=== PATIENT | male | born 1970 | race Caucasian/White ===

== ENCOUNTER 2016-09-15 12:00 | Emergency (ER) | payer MEDICAID ==
[~2016-09-15] VITALS: Wt 75.0 kg
[~2016-09-15 12:00] MED LIST: ALBU8.5H3 IH; ASPI-676 PO; ATOR40TA68 PO; CLOP75TA27 PO; INSULIN; METO-53 PO; OMEG-135 PO; [UNRECOGNIZED DRUG - OTHER]; [UNRECOGNIZED DRUG - REMARK]
[2016-09-15] MEDS ORDERED: IBUPROFEN 600 MG TAB PO ONE (13:00)
--- NOTE | 2016-09-15 13:10 | RADRPT ---
PROCEDURE: XR Sacrum and Coccyx. CLINICAL INDICATION: Low back pain TECHNIQUE: AP and lateral views of the sacrum and coccyx were performed. COMPARISON: No prior studies are available for comparison. FINDINGS: There is normal sacral and coccygeal mineralization and alignment. No fracture or subluxation is see n. The sacroiliac joints appear normal. The soft tissues are unremarkable. IMPRESSION: Unremarkable x-ray examination of the sacrum and coccyx. RPTAT: HGDB .Raymundo Guerrero MD, Date Time Electronically viewed and signed by .Raymundo Guerrero MD, on 09/15/2016 13:10 .B/
--- NOTE | 2016-09-15 13:19 | RADRPT ---
PROCEDURE: Right shoulder 3 views CLINICAL INDICATION: Right shoulder pain and trauma TECHNIQUE: AP internal and external rotation and transscapular Y views of the right shoulder were obtained COMPARISON: None available FINDINGS: Osseous structures are intact. No destructive bony lesions are observed. Interosseous spaces appea r normal. Soft tissues are unremarkable. IMPRESSION: No visualized traumatic injury. If there is high clinical suspicion for traumatic injury, further evaluation with CT should be consi dered. RPTAT: AA .Jeffrey Adams MD, Date Time Electronically viewed and signed by .Jeffrey Adams MD, on 09/15/2016 13:19 .P/
[2016-09-15] MEDS ORDERED: IBUP-1542 PO (13:38)
[2016-09-15] MEDS ORDERED: TRAM50TA2 PO (13:38)
--- NOTE | 2016-09-15 13:41 | ERD ---
ER Documentation Chief Complaint Date/Time DATE: 09/15/16 TIME: 13:39 Chief Complaint fall 10 days prior with pain to right buttocks. no deficit noted. HPI This 45-year-old male fell approximately 10 days ago complains of residual right shoulder pain and pain in his coccyx area. Denies any blood, restricted range of motion, weakness. Denies any head injury or neck pain. ROS All systems reviewed and are negative except as per history of present illness. Medications Home Meds Active Scripts Tramadol HCl (Tramadol HCl) 50 Mg Tablet, 50 MG PO Q4 Y for PAIN, #20 TAB Prov:CRYSTAL CURIEL MD 09/15/16 Ibuprofen* (Motrin*) 600 Mg Tab, 600 MG PO Q6, #20 TAB Prov:CRYSTAL CURIEL MD 09/15/16 Reported Medications [cloudy insulin] No Conflict Check 04/11/13 ["clear insulin"] No Conflict Check 04/11/13 [Insulin] No Conflict Check 04/11/13 Albuterol Sulfate* (Proair HFA*) 8.5 Gm Hfa.aer.ad, 8.5 GM IH BID 04/11/13 Metoprolol (Lopressor) 50 Mg Tablet, 75 MG PO DAILY 04/11/13 Fish Oil* (Fish Oil*) 1,000 Mg Cap, 1000 MG PO DAILY 04/11/13 Clopidogrel Bisulfate (Clopidogrel) 75 Mg Tablet, 75 MG PO DAILY 04/11/13 Atorvastatin* (Atorvastatin*) 40 Mg Tablet, 40 MG PO DAILY 04/11/13 Aspirin (Darien Child) 81 Mg Chew, 81 MG PO DAILY 04/11/13 Allergies Allergies: Coded Allergies: No Known Allergy (Unverified , 04/11/13) PMhx/Soc Medical and Surgical Hx: pt denies Medical Hx, pt denies Surgical Hx History of Surgery: Yes Anesthesia Reaction: No Hx Neurological Disorder: No Hx Respiratory Disorders: Yes Hx Cardiac Disorders: No Hx Psychiatric Problems: No Hx Miscellaneous Medical Probl: Yes (stopped taking all medications ~1 year [employer] ) Hx Alcohol Use: Yes Hx Substance Use: No Hx Tobacco Use: Yes Smoking Status: Current every day smoker Physical Exam Vitals Vital Signs Date Time Temp Pulse Resp B/P Pulse Ox O2 Delivery O2 Flow Rate FiO2 09/15/16 12:03 98.5 98 20 179/90 99 Physical Exam Const: [] Alert, [id number] per Head: Atraumatic Eyes: Normal Conjunctiva ENT: Normal External Ears, Nose and Mouth. Neck: Full range of motion..~ No meningismus. Resp: Clear to auscultation bilaterally Cardio: Regular rate and rhythm, no murmurs Abd: Soft, non tender, non distended. Normal bowel sounds Skin: No petechiae or rashes Back: No midline or flank tenderness. There is tenderness in the coccygeal area and right buttock without deformities, erythema, skin changes. Patient is amatory without pain or discomfort. Ext: No cyanosis, or edema. Tenderness which is mild the right shoulder capsule without deformities, restricted range of motion, weakness, warmth, erythema. Neur: Awake and alert Psych: Normal Mood and Affect Results 24 hrs Current Medications Medications (Trade) Dose Ordered Sig/Angelina Route PRN Reason Start Time Stop Time Status Last Admin Dose Admin Ibuprofen (Motrin) 600 mg ONCE ONCE PO 09/15/16 13:00 09/15/16 13:01 DC 09/15/16 12:48 Procedures/MDM AP lateral 2 view sacrum and coccyx x-ray-no fractures no dislocations. Impression-normal appearing sacrum and coccyx X-ray right shoulder 3V Interpreted by me: Bones: [No fracture] Joints: [No dislocation] Foreign body: [None]. Impression have a normal right shoulder x-ray Patient presents with right shoulder pain and buttock pain after a fall 2010 days ago. There is no evidence of fracture, dislocation, neurologic deficit, bacterial infection. Treated with tramadol and ibuprofen and further observation at home. Return for fevers, blood, new worsening symptoms with primary care doctor this week. The patient was stable with no new complaints during the ER course. Clinically, there is no current evidence to suggest meningitis, sepsis, acute abdomen, pneumonia, acute coronary syndrome, pulmonary embolism, or any other emergent condition appearing to require further evaluation or hospitalization. The patient should certainly return for any new or worsening symptoms per the aftercare instructions. They should otherwise follow-up with her primary care doctor for reevaluation this week. Departure Diagnosis: Primary Impression: Shoulder sprain Encounter type: initial encounter Shoulder sprain type: unspecified sprain Laterality: right Qualified Code: S43.401A - Sprain of right shoulder, unspecified shoulder sprain type, initial encounter Additional Impressions: Coccyx sprain Encounter type: initial encounter Qualified Code: S33.8XXA - Coccyx sprain, initial encounter Fall with no significant injury Encounter type: initial encounter Qualified Code: W19.XXXA - Fall with no significant injury, initial encounter Condition: Stable Patient Instructions: Contusion, Coccyx/Sacrum, Shoulder Sprain Referrals: ROLANDO ROQUE MD Additional Instructions: Examines normal hoy. Cheque otro vez con [place] doctor primario en el proximo santana or regresa para mas o nueva simptomas. Va al [place] doctor/ specialista para mas evaluacon en el proximo semana. posiblemente necesita autorizado de [place] doctor primario para specialista. Regresa para fiebre, o mas o nueva simptomas. CRYSTAL CURIEL MD September 15, 2016 13:41
== END 2016-09-15 14:23 | disposition home or self-care (01) ==
LOC: FTE 12:00
DX: S43.401A Unspecified sprain of right shoulder joint, initial encounter (principal); S33.8XXA Sprain of other parts of lumbar spine and pelvis, initial encounter; F17.210 Nicotine dependence, cigarettes, uncomplicated; W19.XXXA Unspecified fall, initial encounter; Y92.9 Unspecified place or not applicable; Z79.82 Long term (current) use of aspirin
CPT/HCPCS: 72220; 73030; Z7610

== ENCOUNTER 2018-09-18 10:00 | Emergency (ER) | payer MEDICAID ==
[~2018-09-18] VITALS: Wt 89.0 kg
[~2018-09-18 10:00] MED LIST changes: -ALBU8.5H3 IH; +ALBU8.5H8 IH; +IBUP-1542 PO; +TRAM50TA2 PO
[2018-09-18 10:02] VITALS: BP 189/114; PULSE 89; RESP 18; Wt 89.0 kg
[2018-09-18] MEDS ORDERED: NAPR-985 PO (10:56)
[2018-09-18] MEDS ORDERED: PSEU-79 PO (10:56)
[2018-09-18] MEDS ORDERED: PROM6.2515 PO (10:56)
--- NOTE | 2018-09-18 13:16 | ERD ---
ER Documentation Chief Complaint Chief Complaint SORE THROAT, FLANK PAIN X 2 MOS,OFF HTN MEDS HPI 47-year-old male presenting with sore throat and a cough with a runny nose for the last 4 days. Denies any fevers. Has not use any medications for symptoms. Describes as a dry cough. Denies medical problems. NKDA. Surgical history denies. Social history denies ROS All systems reviewed and are negative except as per history of present illness. Medications Home Meds Active Scripts Promethazine Hcl* (Promethazine Hcl* Syrup) 6.25 Mg/5 Ml Syrup, 6.25 MG PO Q6H PRN for COUGH, #100 ML Prov:JOSR OSMAN PA-C 09/18/18 Pseudoephedrine Hcl* (Suphedrin*) 30 Mg Tablet, 30 MG PO Q6 PRN for CONGESTION, #30 TAB Prov:JOSR OSMAN PA-C 09/18/18 Naproxen* (Naprosyn*) 500 Mg Tablet, 500 MG PO BID PRN for PAIN AND/OR INFLAMMATION, #30 TAB Prov:JOSR OSMAN PA-C 09/18/18 Tramadol HCl (Tramadol HCl) 50 Mg Tablet, 50 MG PO Q4 PRN for PAIN, #20 TAB Prov:CRYSTAL CURIEL MD 09/15/16 Ibuprofen* (Motrin*) 600 Mg Tab, 600 MG PO Q6, #20 TAB Prov:CRYSTAL CURIEL MD 09/15/16 Reported Medications [cloudy insulin] No Conflict Check 04/11/13 ["clear insulin"] No Conflict Check 04/11/13 [Insulin] No Conflict Check 04/11/13 Albuterol Sulfate* (Proair HFA*) 8.5 Gm Hfa.aer.ad, 8.5 GM IH BID 04/11/13 Metoprolol (Lopressor) 50 Mg Tablet, 75 MG PO DAILY 04/11/13 Fish Oil* (Fish Oil*) 1,000 Mg Cap, 1000 MG PO DAILY 04/11/13 Clopidogrel Bisulfate (Clopidogrel) 75 Mg Tablet, 75 MG PO DAILY 04/11/13 Atorvastatin* (Atorvastatin*) 40 Mg Tablet, 40 MG PO DAILY 04/11/13 Aspirin (Darien Child) 81 Mg Chew, 81 MG PO DAILY 04/11/13 Allergies Allergies: Coded Allergies: No Known Allergy (Unverified , 04/11/13) PMhx/Soc History of Surgery: Yes Anesthesia Reaction: No Hx Neurological Disorder: No Hx Respiratory Disorders: Yes Hx Cardiac Disorders: Yes (HTN, NO MEDS ) Hx Psychiatric Problems: No Hx Miscellaneous Medical Probl: Yes Hx Alcohol Use: Yes Hx Substance Use: No Hx Tobacco Use: Yes Smoking Status: Current some day smoker FmHx Family History: No diabetes, No coronary disease, No other Physical Exam Vitals Vital Signs Date Temp Pulse Resp B/P (MAP) Pulse Ox O2 O2 Flow FiO2 Time Delivery Rate 09/18/18 98.1 89 18 189/114 99 10:02 (139) Physical Exam GENERAL: The patient is well-appearing, well-nourished, in no acute distress HEENT: Atraumatic. Conjunctivae are pink. Pupils equal, round, and reactive to light. There is no scleral icterus. Tympanic membranes clear bilaterally. Oropharynx clear. NECK: C-spine is soft and supple. There is no meningismus. There is no cervical lymphadenopathy. CHEST: Clear to auscultation bilaterally. There are no rales, wheezes or rhonchi. HEART: Regular rate and rhythm. No murmurs, clicks, rubs or gallops. Procedures/MDM MDM: 47-year-old male presenting with sore throat and cough. I have low suspicion for pneumonia. I have low suspicion for bacterial HENT infection. She likely has viral syndrome. Vitals are stable and patient is nontoxic appearing. I have low suspicion for cardiac or pulmonary emergency. Patient is discharged with supportive medications and told to follow-up with primary care within 1 to 2 days for close evaluation. Patient is told symptoms change or worsen to return immediately to the ER. All questions answered at discharge Departure Diagnosis: Primary Impression: Sore throat Condition: Stable Patient Instructions: Self-Care for Sore Throats Referrals: COMMUNITY CLINICS YOU HAVE RECEIVED A MEDICAL SCREENING EXAM AND THE RESULTS INDICATE THAT YOU DO NOT HAVE A CONDITION THAT REQUIRES URGENT TREATMENT IN THE EMERGENCY DEPARTMENT. FURTHER EVALUATION AND TREATMENT OF YOUR CONDITION CAN WAIT UNTIL YOU ARE SEEN IN YOUR DOCTORS OFFICE WITHIN THE NEXT 1-2 DAYS. IT IS YOUR RESPONSIBILITY TO MAKE AN APPOINTMENT FOR FOLOW-UP CARE. IF YOU HAVE A PRIMARY DOCTOR --you should call your primary doctor and schedule an appointment IF YOU DO NOT HAVE A PRIMARY DOCTOR YOU CAN CALL OUR PHYSICIAN REFERRAL HOTLINE AT IF YOU CAN NOT AFFORD TO SEE A PHYSICIAN YOU CAN CHOSE FROM THE FOLLOWING [facility] CLINICS [facility] [address] [facility] [address] [facility] [address] [facility] [address] [facility] [address] [facility]. [facility] [address] Additional Instructions: FOLLOW UP WITH YOUR PRIMARY CARE PHYSICIAN TOMORROW.Return to this facility if you are not improving as expected. JOSR OSMAN PA-C September 18, 2018 13:16
== END 2018-09-18 11:12 | disposition home or self-care (01) ==
LOC: FTE 10:00
DX: J02.9 Acute pharyngitis, unspecified (principal); I10 Essential (primary) hypertension; F17.210 Nicotine dependence, cigarettes, uncomplicated; Z79.01 Long term (current) use of anticoagulants; Z79.4 Long term (current) use of insulin; Z79.82 Long term (current) use of aspirin
CPT/HCPCS: 99283

== ENCOUNTER 2018-10-09 16:27 | Emergency (ER) | payer MEDICAID ==
[~2018-10-09] VITALS: Ht 167.6 cm; Wt 79.0 kg
[~2018-10-09 16:27] MED LIST changes: +NAPR-985 PO; +PROM6.2515 PO; +PSEU-79 PO
[2018-10-09 16:29] VITALS: Ht 167.6 cm; Wt 79.0 kg
--- NOTE | 2018-10-09 17:20 | ERD ---
ER Documentation Chief Complaint Chief Complaint rt upper abd pain x 1 month HPI This is a 47-year-old male with a past medical history of hypertension, hyperlipidemia, coronary artery disease status post CABG, a recent diagnosis of right-sided kidney stones for which he is currently taking naproxen and Flomax, who is now presenting with concerns of a right-sided breast mass and mild tenderness at the site of the mass. 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 Over the past 1 to 2 months, the patient has noticed a small fluctuant mass on the right that is mildly tender to touch. The patient reported having disco mfort to this today and wanted to be evaluated for this. The patient reports that he has no chest pain internally. He has no shortness of breath. He has no diaphoresis. He has no nausea or vomiting. He has no lightheadedness or dizziness or weakness. His only concern is the palpable mass to his right chest. The patient denies feeling sick recently. The patient denies fever or chills. The patient has had no headache or vision changes. The patient does not endorse neck or back pain. The patient denies any current abdominal pain. He reports that the medication he has received from his primary doctor is working. The patient denies changes to bowel movements or urination. The patient has had no focal deficits. The patient has had no weakness or numbness or tingling to the face or extremities. ROS All systems reviewed and are negative except as per history of present illness. Medications Home Meds Active Scripts Promethazine Hcl* (Promethazine Hcl* Syrup) 6.25 Mg/5 Ml Syrup, 6.25 MG PO Q6H PRN for COUGH, #100 ML Prov:JOSR OSMAN PA-C 09/18/18 Pseudoephedrine Hcl* (Suphedrin*) 30 Mg Tablet, 30 MG PO Q6 PRN for CONGESTION, #30 TAB Prov:JOSR OSMAN PA-C 09/18/18 Naproxen* (Naprosyn*) 500 Mg Tablet, 500 MG PO BID PRN for PAIN AND/OR INFLAMMATION, #30 TAB Prov:JOSR OSMAN PA-C 09/18/18 Tramadol HCl (Tramadol HCl) 50 Mg Tablet, 50 MG PO Q4 PRN for PAIN, #20 TAB Prov:CRYSTAL CURIEL MD 09/15/16 Ibuprofen* (Motrin*) 600 Mg Tab, 600 MG PO Q6, #20 TAB Prov:CRYSTAL CURIEL MD 09/15/16 Reported Medications [cloudy insulin] No Conflict Check 04/11/13 ["clear insulin"] No Conflict Check 04/11/13 [Insulin] No Conflict Check 04/11/13 Albuterol Sulfate* (Proair HFA*) 8.5 Gm Hfa.aer.ad, 8.5 GM IH BID 04/11/13 Metoprolol (Lopressor) 50 Mg Tablet, 75 MG PO DAILY 04/11/13 Fish Oil* (Fish Oil*) 1,000 Mg Cap, 1000 MG PO DAILY 04/11/13 Clopidogrel Bisulfate (Clopidogrel) 75 Mg Tablet, 75 MG PO DAILY 04/11/13 Atorvastatin* (Atorvastatin*) 40 Mg Tablet, 40 MG PO DAILY 04/11/13 Aspirin (Darien Child) 81 Mg Chew, 81 MG PO DAILY 04/11/13 Allergies Allergies: Coded Allergies: No Known Allergy (Unverified , 04/11/13) PMhx/Soc History of Surgery: Yes (CABG) Anesthesia Reaction: No Hx Neurological Disorder: No Hx Respiratory Disorders: Yes (Asthma) Hx Cardiac Disorders: Yes (Hypertension, hyperlipidemia, coronary artery disease status post CABG) Hx Psychiatric Problems: No Hx Miscellaneous Medical Probl: Yes Hx Alcohol Use: Yes Hx Substance Use: No Hx Tobacco Use: Yes FmHx Family History: No diabetes Physical Exam Vitals Vital Signs Date Temp Pulse Resp B/P (MAP) Pulse Ox O2 O2 Flow FiO2 Time Delivery Rate 10/09/18 98.1 87 18 190/102 99 16:29 (131) Physical Exam Const: No acute distress Head: Atraumatic Eyes: Normal Conjunctiva ENT: Normal External Ears, Nose and Mouth. Neck: Full range of motion. No meningismus. Resp: Clear to auscultation bilaterally Cardio: Regular rate and rhythm, no murmurs Chest: Sternotomy scar. Small mobile nontender fluctuant 1 cm mass just lateral to the right areola, no erythema or induration or purulence or fluctuanc e or warmth. Abd: Soft, non tender, non distended. Normal bowel sounds Skin: No petechiae or rashes Back: No midline or flank tenderness Ext: No cyanosis, or edema Neur: Awake and alert Psych: Normal Mood and Affect Procedures/MDM MDM Previous medical records, if available, were reviewed. The patient presents for evaluation of a right chest mass. Clinically, the patient's symptoms and physical exam are consistent with a lipoma, which the patient reports having had in the past. I have very low suspicion for cellulitis or abscess or other soft tissue infection. 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 I suggested that the patient follow-up with the physician who performed the previous biopsy to have this one biopsied as well. I do not feel that emergent imaging is necessary. The patient symptoms are not consistent with acute coronary syndrome, and I have low suspicion for a cardiopulmonary etiology. The patient does report a history of right-sided kidney stones, and is currently on medication for this. He does not endorse any abdominal pain at this time. He does not endorse any difficulty or changes to urination. He does not endorse hematuria. He has no flank pain. I have low suspicion for an obstructive nephropathy. The patient's symptoms are not consistent with a urinary tract infection. I do not suspect cholelithiasis, biliary colic or cholecystitis. I do not feel this requires an emergent work-up. The patient may follow-up for his kidney stones with his physician as scheduled. TREATMENT/DISPOSITION The patient was offered a dose of Toradol in the emergency department, but he declined. DISCHARGE Upon reevaluation of the patient, symptoms have improved. No emergent diagnoses were identified. At this time, I feel that the patient stable for discharge. The patient was instructed to follow-up with a primary care physician in 1-3 days. The patient will be given strict precautions with which to return to the emergency department. Prescriptions: None The patient's blood pressure was elevated at greater than 120/80 while in the emergency department. The patient was otherwise stable with no evidence of hypertensive urgency or emergency. The patient does not require admission for blood pressure control. I have discussed with the patient the risks of hypertension. I have instructed the patient to return to the ER for any new or worsening symptoms including chest pain, shortness of breath, headache, blurred vision, confusion, nausea, vomiting or LOC. I have advised the patient to follow up with the primary care physician for outpatient monitoring and treatment for hypertension in 1-3 days. Disclaimer: Inadvertent spelling and grammatical errors are likely due to EHR/dictation software use and do not reflect on the overall quality of patient care. Note that the electronic time recorded on this note does not necessarily reflect the actual time of the patient encounter. Departure Diagnosis: Primary Impression: Breast mass, right Condition: Stable Patient Instructions: Breast Mass, Uncertain Cause Additional Instructions: Thank you for for coming to [facility] for your care today. Please ask your nurse or provider if you have questions about your care today and do not leave until all your questions have been answered. Please use any medications given as directed and follow-up with your doctor (or the doctor you were referred to) in the next 1-3 days. If you do not have a primary care doctor you may follow up at the [facility] or [facility] (listed below). You may also use motrin and tylenol as needed for fever and/or pain unless instructed otherwise by your provider or nurse. Indications for more urgent follow-up have been discussed, but you may return to the Emergency Department at ANY time for any worrisome or worsening symptoms. If you have abdominal pain, please know that no test or exam you received is perfect and you should follow up within 8 hours for continued pain. If you had any imaging studies today, such as an X-Ray or CT Scan, these studies will be reviewed later by a radiologist. You will be called if there are important findings that were not identified today, so make sure the contact information you provided at registration is correct. If you received any narcotic pain control medicine today, such as Vicodin, Morphine or Dilaudid, your coordination and judgment may be affected for a number of hours. Please do not drive or operate heavy machinery, and you may want someone to assist you at home. If you were given a prescription for narcotic medication, be aware that it is very addictive- use sparingly and only if necessary. PLEASE SEEK FURTHER EVALUATION AND MANAGEMENT AT YOUR DOCTORS OFFICE WITHIN THE NEXT 1-3 DAYS. IT IS YOUR RESPONSIBILITY TO MAKE AN APPOINTMENT FOR FOLOW-UP CARE. IF YOU HAVE A PRIMARY DOCTOR, PLEASE CALL THEIR OFFICE TO SCHEDULE AN APPOINTMENT FOR FOLLOW UP. IF YOU DO NOT HAVE A PRIMARY DOCTOR YOU CAN CALL OUR PHYSICIAN REFERRAL HOTLINE AT IF YOU CAN NOT AFFORD TO SEE A PHYSICIAN YOU CAN CHOSE FROM THE FOLLOWING [facility] CLINICS: [facility] [address] [facility] [address] [facility] [address] [facility] [address] [facility] [address] [facility]. [facility]. [address] BLANCA VARGAS MD October 09, 2018 17:20
[2018-10-09 17:35] VITALS: BP 156/89; PULSE 88; RESP 18
== END 2018-10-09 18:01 | disposition home or self-care (01) ==
LOC: E/R 16:27
DX: N63.10 Unspecified lump in the right breast, unspecified quadrant (principal); I10 Essential (primary) hypertension; J45.909 Unspecified asthma, uncomplicated; Z79.02 Long term (current) use of antithrombotics/antiplatelets; Z79.82 Long term (current) use of aspirin; Z87.891 Personal history of nicotine dependence; Z95.1 Presence of aortocoronary bypass graft
CPT/HCPCS: 99282